=== PATIENT | male | born 1955 | race Caucasian/White ===

== ENCOUNTER 2023-09-27 09:40 | Emergency (ER) | payer MEDICARE, OTHER, SELFPAY ==
[2023-09-27 09:43] VITALS: BP 155/99
--- NOTE | 2023-09-27 10:08 | ED.GENMED ---
History of Present Illness
General
Chief Complaint: Abdominal Pain
Time Seen by Provider: 09/27/23 09:57
Travel History
Have you had any contact with someone who has COVID-19?: No
Do you have any symptoms of coronavirus? Fever > 100 degrees, chills, cough, shortness of breath, sore throat, loss of taste or smell, muscle aches, or headache?: No
History of Present Illness
History of Present Illness:
67-year-old male presents to the emergency department patient sudden onset of left pelvic pain began approximatey 1 hour prior to arrival. He states he was standing in the kitchen making breakfast when this occurred. No associated fever, chills,
sweats, nausea, vomiting, or diarrhea. Has never had similar symptoms. No prior abdominal surgeries. Denies any lower urinary tract voiding symptoms
Past History
Past History
ED Past Medical History: None
ED Past Surgical History: Other (Mitral valve repair)
Social History
Tobacco: Non-smoker
Personal:
Living: with family
Employment: Employed
Review of Systems
Review of Systems
Allergies reviewed?: Yes
All Other Systems: ROS reviewed and negative except as documented in HPI and ROS
Phy Exam
Physical Exam
Physical Exam:
GEN: Well appearing, NAD, WDWN
HEENT: Oral mucosa moist, no scleral icterus
Cardiac: Regular rate
Lung: No respiratory distress, no tachypnea
Abdomen: Soft, nontender. Minimal focal tenderness to the left suprapubic space, no palpable abnormalities, CVA tenderness
MSK: No gross deformity or injuries
Skin: Good color, no pallor or jaundice, no rashes
Neuro: AO x3, moves all extremities freely
Psych: Calm, cooperative
Course
Orders/Labs/Results
Orders:
Orders
09/27/23 10:04
IV Insert/Care/Rem.- Treatment PRN
Ketorolac [Toradol] 15 mg IV NOW STA
09/27/23 10:06
CT Abd/pel Without Iv Or Oral Urgent
Comment:
Reason For Exam: L pelvic pain, suspect stone
09/27/23 10:16
Basic Metabolic Panel Urgent
Complete Blood Count/With Diff Urgent
Urinalysis Reflex To Culture Urgent
Date Specimen was Collected: 09/27/23
Time Specimen was Collected: 10:11
Abnormal Lab Results
09/27/23
10:16
RBC 4.62 L 10^6/uL
(4.70-6.10)
MCH 31.2 H pg
(27.0-31.0)
Absolute Lymphs (auto) 1.1 L 10^3/uL
(1.2-3.4)
Lymphocytes % 18.7 L %
(20.5-51.1)
BUN 22 H mg/dl
(9-20)
Glucose 103 H mg/dl
(70-99)
09/27/23 10:16
09/27/23 10:16
Vital Signs
Initial and Last Documented VS:
Initial Vital Signs
Temp Pulse Resp BP Pulse Ox
98.2 F 64 16 155/99 99
09/27/23 09:43 09/27/23 09:43 09/27/23 09:43 09/27/23 09:43 09/27/23 09:43
Last Documented Vital Signs
Temp Pulse Resp BP Pulse Ox
98.0 F 56 16 143/87 98
09/27/23 11:53 09/27/23 11:53 09/27/23 11:53 09/27/23 11:53 09/27/23 11:53
MDM/Problems Addressed
MDM/Problems Addressed:
Uncertain etiology to symptoms, may be musculoskeletal, doubt related to inguinal hernias. Noted incidental R renal cyst, recommend outpatient PCP f/u for US. NSAIDs advised for pain. No e/o kidney stone, UA clean
*Critical Care Note
Total Time (30-74mins, 75-104mins- exclusive of procedures): Not Applicable
ED Attending Note
-
Portions of this chart may have been created with voice recognition software.� Occasional wrong word or��sound alike� substitutions may have occurred due to the inherent limitations of voice recognition software.
Discharge Plan
Departure
Patient Disposition: Home (Routine Discharge)
Date of Disposition: 09/27/23
Time of Disposition: 11:25
Patient with high blood pressure during this ER visit?: No
Discharge Problem:
Acute pelvic pain
Instructions: Pelvic Pain ED
Referrals:
Leti Matute MD [Family Provider] -
Activity Restrictions/Additional Instructions:
You were noted to have a 4cm 'cyst' on your right kidney. This should be followed up with an ultrasound through your primary care physician
Interventions
Interventions:
*Risk Screen - Suicide Last Done: 09/27/23 09:42
*General Assessment Last Done: 09/27/23 09:42
*Neglect/Abuse Screening Last Done: 09/27/23 09:42
ED- Fall Risk Assessment Last Done: 09/27/23 11:53
*ED COVID-19 Vaccine History Last Done: 09/27/23 10:20
*Nursing Disposition Last Done: 09/27/23 11:53
SW-[place]-Yeittdxaiq Assessment Last Done: 09/27/23 10:30
Discharge Date and Time
Discharge Date/Time: 09/27/23 11:56
Print Language: VIET[place]ESE
[2023-09-27] MEDS: TORADOL 15 MG IV (10:17)
[2023-09-27 10:20] VITALS: BMI 26.6
[2023-09-27 10:33] LABS: % Basophils 1.5 % (0-2); % Eosinophils 3.1 % (0-6); % Immature Granulocytes 0.3 % (0-0.5); % Lymphocytes 18.7 % (20.5-51.1); % Monocytes 6.8 % (1.7-9.3); % Neutrophils 69.6 % (42.2-75.2); Absolute Basophils 0.1 10^3/uL (0-0.2); Absolute Eosinophils 0.2 10^3/uL (0-0.7); Absolute Lymphocytes 1.1 10^3/uL (1.2-3.4); Absolute Monocytes 0.4 10^3/uL (0.1-0.6); Absolute Neutrophils 4.2 10^3/uL (1.4-6.5); Hematocrit 40.8 % (39.0-52.0); Hemoglobin 14.4 g/dL (13.0-18.0); Mean Corp Hgb Conc. 35.3 g/dL (33.0-37.0); Mean Corpuscular Hgb 31.2 pg (27.0-31.0); Mean Corpuscular Volume 88.3 fL (80.0-94.0); Mean Platelet Volume 10.3 fL (7.4-10.4); Nucleated Red Blood Cells % 0 % (-); Platelet Count 208 10^3/uL (130-400); Red Blood Cell Count 4.62 10^6/uL (4.70-6.10); Red Cell Dist. Width 13.1 % (11.5-14.5)
[2023-09-27 10:39] LABS: Urine Albumin Negative (Neg - Trace); Urine Bilirubin Negative (Negative); Urine Character Clear (Clear); Urine Color Yellow; Urine Glucose Negative (Negative); Urine Ketone Negative (Negative); Urine Leukocyte Negative (Negative); Urine Nitrite Negative (Negative); Urine Occult Blood Negative (Negative); Urine Specific Gravity 1.015 (<1.030); Urine Urobilinogen Negative (Neg - 1+); Urine pH 6.5 (5.0-9.0)
[2023-09-27 10:48] LABS: Blood Urea Nitrogen 22 mg/dl (9-20); Carbon Dioxide 24 mmol/L (22-30); Chloride 104 mmol/L (98-107); Estimated Creatinine Clearance 104 ml/min; Glucose 103 mg/dl (70-99); Potassium 4.7 mmol/L (3.5-5.1); Sodium 136 mmol/L (135-145); eGFR > 60.00
[2023-09-27 11:53] VITALS: BP 143/87
== END 2023-09-27 11:56 | disposition home or self-care (01) ==
LOC: EMR 09:40
PROVIDERS: Physician Assistant; EMERGENCY PHYSICIAN Emergency Medicine; FAMILY PHYSICIAN Internal Medicine
DX: R10.2 Pelvic and perineal pain (principal)
CPT/HCPCS: 99284; 96374; 74176; 80048; 81003; 85025

== ENCOUNTER → 2023-12-27 09:02 | Outpatient (REF) | payer MEDICARE, OTHER, SELFPAY | LOC: RAD 09:02 | PROVIDERS: ATTENDING PHYSICIAN Specialist | DX: N28.1 Cyst of kidney, acquired (principal) | CPT/HCPCS: 74170; Q9967 ==

== ENCOUNTER → 2024-01-08 07:59 | Outpatient (REF) | payer MEDICARE, OTHER, SELFPAY | LOC: RCS 07:59 | PROVIDERS: ATTENDING PHYSICIAN Internal Medicine Cardiovascular Disease; FAMILY PHYSICIAN Family Medicine | DX: Z98.890 Other specified postprocedural states (principal); I49.8 Other specified cardiac arrhythmias; I34.0 Nonrheumatic mitral (valve) insufficiency | CPT/HCPCS: 93306 ==

== ENCOUNTER → 2024-05-06 08:39 | Outpatient (REF) | payer MEDICARE, OTHER, SELFPAY | LOC: MRI 08:39 | PROVIDERS: ATTENDING PHYSICIAN Urology; FAMILY PHYSICIAN Family Medicine | DX: N28.89 Other specified disorders of kidney and ureter (principal) | CPT/HCPCS: 71250; 74183; A9575 ==

== ENCOUNTER → 2024-12-02 07:17 | Outpatient (REF) | payer OTHER, SELFPAY | LOC: RAD 07:17 | PROVIDERS: ATTENDING PHYSICIAN Urology; FAMILY PHYSICIAN Family Medicine | DX: N28.89 Other specified disorders of kidney and ureter (principal) | CPT/HCPCS: 71260; 74178; Q9967 ==

== ENCOUNTER → 2025-06-09 06:57 | Outpatient (REF) | payer OTHER, SELFPAY | LOC: RAD 06:57 | PROVIDERS: ATTENDING PHYSICIAN Urology; FAMILY PHYSICIAN Family Medicine | DX: C64.1 Malignant neoplasm of right kidney, except renal pelvis (principal) | CPT/HCPCS: 71260; 74178; Q9967 ==